=== PATIENT | male | born 1980 | race Caucasian/White ===

== ENCOUNTER 2021-10-10 10:29 | Outpatient (CLI) | payer BC | END 2021-10-10 10:30 | disposition home or self-care (01) | LOC: BICRAD 10:29 | PROVIDERS: ATTEND Family Medicine | DX: M25.512 Pain in left shoulder (principal) ==

== ENCOUNTER 2022-07-11 10:58 | Outpatient (CLI) | payer BC | END 2022-07-11 10:59 | disposition home or self-care (01) | LOC: BICRAD 10:58 | PROVIDERS: ATTEND Family Medicine | DX: M54.50 Low back pain, unspecified (principal) | CPT/HCPCS: 72100 ==